=== PATIENT | male | born 1955 | race Two or more races ===

== ENCOUNTER 2018-01-27 18:09 | Emergency (ER) | payer BC, OTHER ==
[~2018-01-27] VITALS: Ht 165.1 cm; Wt 100.0 kg
[2018-01-27 18:11] VITALS: BP 130/79
== END 2018-01-27 20:44 | disposition home or self-care (01) ==
LOC: ED 20:38
DX: S70.12XA Contusion of left thigh, initial encounter (principal); M45.8 Ankylosing spondylitis sacral and sacrococcygeal region; W01.0XXA Fall on same level from slipping, tripping and stumbling without subsequent striking against object, initial encounter; Y93.89 Activity, other specified; Y99.8 Other external cause status; Y92.410 Unspecified street and highway as the place of occurrence of the external cause
CPT/HCPCS: 99284

== ENCOUNTER → 2018-02-17 | Outpatient (CLI) | payer OTHER | END | disposition home or self-care (01) | LOC: RAD 12:09 | PROVIDERS: ATTEND Physician Assistant | DX: S72.422A Displaced fracture of lateral condyle of left femur, initial encounter for closed fracture (principal); X58.XXXA Exposure to other specified factors, initial encounter; Y93.89 Activity, other specified; Y92.89 Other specified places as the place of occurrence of the external cause; Y99.8 Other external cause status ==

== ENCOUNTER → 2021-08-22 | Outpatient (CLI) | payer MEDICARE, OTHER ==
[2021-08-22 14:11] LABS: CREATININE 0.84 mg/dL (0.7-1.3)
== END | disposition home or self-care (01) ==
LOC: LAB 13:42
PROVIDERS: ATTEND Student in an Organized Health Care Education/Training Program
DX: R97.20 Elevated prostate specific antigen [PSA] (principal)
CPT/HCPCS: 36415; 82565; 84153; 84520; G0103